=== PATIENT | male | born 1945 | race Caucasian/White ===

== ENCOUNTER 2017-01-18 20:37 | Emergency (ER) | payer MEDICARE, BC ==
[2017-01-18 21:00] LABS: BASO % 0.9 % (0-6); EOS % 3.9 % (0-6); GRAN % 61.5 % (47-80); HEMATOCRIT 33.5 % (42.0-52.0); HEMOGLOBIN 10.5 gm/dl (14.0-18.0); LYMPH % 24.1 % (16-45); MEAN CELL VOLUME 88.2 fl (81-97); MEAN CORPUSCULAR HEMOGLOBIN 27.6 pg (27-33); MEAN CORPUSCULAR HGB CONC 31.3 g/dl (32-36); MEAN PLATELET VOLUME 11.1 fl (7.4-10.4); MONO % 9.6 % (0-9); PLATELET COUNT 312 K/uL (130-400); RED CELL DISTRIBUTION WIDTH 15.8 % (11.5-14.5); WHITE BLOOD COUNT W/O DIFF 7.8 K/uL (4.2-12.2)
--- NOTE | 2017-01-18 21:02 | Emergency Department Record ---
History of Present Illness - General Chief Complaint: Fall Injury Stated Complaint: FALL Time Seen by Provider: 01/18/17 20:54 Source: Patient Mode of Arrival: Wheelchair Limitations: No limitations - History of Present Illness Initial Comments: 71 yo male presents to ED following fall 2 hours ago down 1 step, is taking Xarelto for atrial fibrillation. Patient reports injury to the left posterior scalp region, denies neck pain, extremity weakness, tingling, or weakness. Patient denies neck pain, denies chest pain or injury. Patient does report injury to the left posterior/lateral flank region. Patient denies hip or extremity injury. Patient also has a history of Faisal's disease. MD Complaint: Fall Onset/Timin -: Hour(s) Fall From: Down stairs (#) (1) When Fall Occurred: 1-3 hours [employer] Fall Witnessed: Yes, by family Place Fall Occurred: School Loss of Consciousness: None Prolonged Down Time?: No Symptoms Prior to Fall: None Location: Head, Back Context: Tripped/slipped Associated Symptoms: Headache - Brooks Coma Scale Eye Response: (4) Open spontaneously Motor Response: (6) Obeys commands Verbal Response: (5) Oriented Randell Total: 15 - Related Data Home Medications Medication Instructions Recorded Confirmed Last Taken Aspirin [Ecotrin] 81 mg PO DAILY 01/18/17 01/18/17 01/18/17 Atorvastatin Calcium [Lipitor] 80 mg PO QHS 01/18/17 01/18/17 01/17/17 Bupropion HCl [Wellbutrin Sr] 200 mg PO BID 01/18/17 01/18/17 01/18/17 Carvedilol [Coreg] 6.25 mg PO BID 01/18/17 01/18/17 01/18/17 Nitroglycerin [Nitrostat] 0.4 mg SL Q5MIN 01/18/17 01/18/17 Unknown Olanzapine [Zyprexa] 2.5 mg PO BID 01/18/17 01/18/17 01/18/17 [place]-3 Fatty Acids [[place]-3] 1,000 mg PO DAILY 01/18/17 01/18/17 01/18/17 Polyethylene Glycol 3350 [Miralax] 17 gm PO DAILY 01/18/17 01/18/17 01/18/17 Ranitidine HCl [Zantac] 150 mg PO BID 01/18/17 01/18/17 01/18/17 Allergies Allergy/AdvReac Type Severity Reaction Status Date / Time No Known Drug Allergies Allergy Verified 01/18/17 20:50 Review of Systems Constitutional: Denies: Chills, Fever, Malaise, Night sweats Eyes: Denies: Eye discharge, Eye pain ENT: Denies: Congestion, Ear pain, Epistaxis Respiratory: Denies: Cough, Dyspnea Cardiovascular: Denies: Chest pain, Dyspnea on exertion Endocrine: Denies: Fatigue, Heat or cold intolerance Gastrointestinal: Denies: Abdominal pain, Nausea, Vomiting Genitourinary: Denies: Incontinence, Retention Musculoskeletal: Reports: Back pain. Denies: Arthralgia, Gout, Joint swelling Skin: Denies: Bruising, Change in color Neurological: Reports: Headache. Denies: Abnormal gait, Confusion, Seizure Psychiatric: Denies: Anxiety Hematological/Lymphatic: Reports: Easy bleeding, Easy bruising. Denies: Anemia , Blood Clots Physical Exam - General General Appearance: Alert, Oriented x3, Cooperative, Mild distress Limitations: No limitations - Head Head exam: Atraumatic, Normocephalic, Normal inspection Head exam detail: General tenderness (left posterior scalp). negative: Abrasion , Contusion, Oliva's sign, Hematoma, Laceration - Eye Eye exam: Normal appearance. negative: Conjunctival injection, Periorbital swelling, Periorbital tenderness - ENT Ear exam: negative: Auricular hematoma, Auricular trauma Nasal Exam: negative: Active bleeding, Discharge, Dried blood, Foreign body Mouth exam: negative: Drooling, Laceration, Muffled voice, Tongue elevation - Neck Neck exam: Normal inspection. negative: Meningismus, Tenderness - Respiratory Respiratory exam: Normal lung sounds bilaterally. negative: Rales, Respiratory distress, Rhonchi, Stridor - Cardiovascular Cardiovascular Exam: Regular rate, Normal rhythm, Normal heart sounds - GI/Abdominal GI/Abdominal exam: Soft. negative: Rebound, Rigid, Tenderness - Rectal Rectal exam: Deferred - exam: Deferred - Extremities Extremities exam: Normal inspection, Full ROM. negative: Calf tenderness, Pedal edema, Tenderness - Back Back exam: Reports: Tenderness (Left posterior flank region). Denies: CVA tenderness (R), CVA tenderness (L) - Neurological Neurological exam: Alert, Normal gait, Oriented X3 - Psychiatric Psychiatric exam: Normal affect, Normal mood - Skin Skin exam: Normal color. negative: Abrasion Type of lesion: negative: abrasion Course - Reevaluation(s) Reevaluation #1: 01/18/17 21:17 Labs reviewed, Hgb 10.5/HCT 33.5 (no previous for comparison), BUN 22/ Creatinine 1.6. INR normal. Labs are otherwise grossly unremarkable for an acute process. Due to elevated Creatinine and GFR 45, will perform imaging without IV contrast. Patient taken to CT for imaging. Reevaluation #2: 01/18/17 21:54 CT Brain: Atrophy, nothing acute CT Cervical Spine: Nothing acute CT Chest: Nothing acute CT Abdomen/Pelvis: No acute traumatic injury Patient and family were updated on all results, and the patient appears stable for discharge at this time. patient and family were warned about the very rare occurrence of delayed bleeding with warfarin, and to return for any worsening of headache symptoms, confusion, or worsening of his symptoms. 01/18/17 22:56 Medical Decision Making - Lab Data Result diagrams: 01/18/17 20:58 01/18/17 20:58 Disposition Disposition: Discharge Clinical Impression: Fall Qualifiers: Encounter type: initial encounter Qualified Code(s): W19.XXXA - Unspecified fall, initial encounter Contusion of scalp Qualifiers: Encounter type: initial encounter Qualified Code(s): S00.03XA - Contusion of scalp, initial encounter Disposition: Home, Self-Care Condition: (2) Stable Instructions: Contusion in Adults (ED) Additional Instructions: Return to ED if your symptoms worsen or if you have any concerns. Follow-up with your family doctor in 1-3 days as directed. Forms: Patient Portal Access Time of Disposition: 21:57
[2017-01-18 21:10] LABS: ALB/GLOB RATIO 1.1 (1.1-1.8); ALBUMIN 4.1 gm/dL (3.5-5.0); ANION GAP 7.6 (7-16); BILIRUBIN,TOTAL 0.5 mg/dL (0.2-1.3); CARBON DIOXIDE 20.4 mmol/L (22-30); CREATININE 1.6 mg/dL (0.66-1.25); INR 0.97; TOTAL PROTEIN 7.7 gm/dL (6.3-8.2)
== END 2017-01-18 22:17 | disposition home or self-care (01) ==
LOC: ER 20:37
DX: S00.03XA Contusion of scalp, initial encounter (principal); S29.9XXA Unspecified injury of thorax, initial encounter; S19.9XXA Unspecified injury of neck, initial encounter; S39.91XA Unspecified injury of abdomen, initial encounter; I48.91 Unspecified atrial fibrillation; Z79.01 Long term (current) use of anticoagulants; Z91.81 History of falling; G10 Huntington's disease; F02.80 Dementia in other diseases classified elsewhere, unspecified severity, without behavioral disturbance, psychotic disturbance, mood disturbance, and anxiety; W10.9XXA Fall (on) (from) unspecified stairs and steps, initial encounter; Y92.219 Unspecified school as the place of occurrence of the external cause
CPT/HCPCS: 70450; 71250; 72125; 74176; 80053; 85025; 85610; 99283; 99284